=== PATIENT | female | born 1955 ===

== ENCOUNTER 2024-03-13 07:05 | Outpatient (REF) | payer MEDICARE, SELFPAY ==
--- NOTE | ~2024-03-13 | XR_ITS ---
EXAMINATION: XR KNEE, RIGHT CLINICAL INFORMATION: Right knee pain COMPARISON: None available. TECHNIQUE: Three views of the right knee. FINDINGS: Joint space narrowing and prominent osteophytes in the medial compartment. Small marginal osteophytes in the patellofemoral and lateral compartments. No joint effusion. No fracture. XR/XR knee RT 3V IMPRESSION: Moderate medial compartment and mild patellofemoral/lateral compartment osteoarthritis. Electronically signed by: Wood Dove MD 03/19/2024 08:41 AM EDT
== END 2024-03-13 07:06 | disposition home or self-care (01) ==
LOC: HO.HOSX 07:05
PROVIDERS: PCP Internal Medicine; Visit Provider Orthopaedic Surgery
DX: M17.11 Unilateral primary osteoarthritis, right knee (principal); Z96.652 Presence of left artificial knee joint
CPT/HCPCS: 73562; 99212

== ENCOUNTER 2024-03-13 07:49 | Outpatient (AMB) | payer MEDICARE, SELFPAY ==
--- NOTE | 2024-03-13 07:58 | MHC.OFFVIS ---
Intake Visit Reasons: New Pt - right knee pain Intake Note: Geraldine is a 69 year old female who presents with complaints of intermittent pain in her right knee. She did undergo left total knee replacement surgery several years ago. She reports minimal discomfort in her left knee. She continues to go to the gym 2-3 times per week to exercise denies any locking or giving way. She does take ibuprofen as needed for her discomfort. She wishes to hold off on right total knee replacement surgery for as long as possible. Medication List - Last Reconciled 03/13/24 by Regulo Burnett MD No Known Home Meds Physical Exam Const Other: Well-nourished well-developed very friendly female awake alert and oriented x3 in no acute distress Extrem Other: Bilateral lower extremity examination shows good capillary refill, no skin lesions noted, normal sensation light touch Right knee examination shows a minimal effusion, mild crepitus with range of motion, pain with range of motion, no instability Results Reviewed Results Reviewed: X-rays of the patient's right knee show moderate joint space narrowing, subchondral sclerosis most significant in the medial compartment, no acute bony abnormalities Assessment & Plan Assessment & Plan (1) Right knee pain: Code(s): M25.561 - Pain in right knee Category: Medical Plan Ms. Yang presents with intermittent right knee pain due to degenerative joint disease. I had a lengthy discussion with the patient regarding the treatment options. At this point the patient's symptoms are tolerable to her. We will hold off on a cortisone injection. She will continue with her exercise program. She will follow up with me on an as-needed basis should her symptoms worsen in any way. I spent 20 minutes in reviewing the patient's records and imaging studies, seeing the patient and documenting in the medical record. Orders: Orders XR knee RT 3V Today M25.561 - Pain in right knee Coding Level of Care Code Est Pt Level 3 (27357) Complex EM visit Add On G2211 Diagnoses Right knee pain M25.561
== END 2024-03-13 08:15 | disposition home or self-care (01) ==
PROVIDERS: Visit Provider Orthopaedic Surgery
DX: M17.11 Unilateral primary osteoarthritis, right knee (principal)
CPT/HCPCS: 99213; G2211